=== PATIENT | male | born 1945 | race Caucasian/White ===

== ENCOUNTER 2021-03-07 14:10 | Emergency (ER) | payer MEDICARE ==
[~2021-03-07] VITALS: Ht 167.6 cm; Wt 58.2 kg
--- NOTE | 2021-03-07 14:22 | NUR ---
TRIAGE: PATIENT ARRIVES WITH RLQ PAIN THAT BEGAN 9 DAYS AGO OFF AND ON. NO N/V
--- NOTE | 2021-03-07 14:34 | NUR ---
ASSUMED CARE OF PATIENT. PATIENT REPORTS RIGHT LOWER ABD PAIN X9 DAYS. VS STABLE. NO ACUTE DISTRESS NOTED. CALL LIGHT IN PLACE. WILL CONTNIUE TO MONITOR.
[2021-03-07 15:24] LABS: BASOPHILS % (AUTO) 1 % (0-1); EOSINOPHILS % (AUTO) 2 % (1-7); LYMPHOCYTES % (AUTO) 21 % (22-44); MEAN CORPUSCULAR HEMOGLOBIN 29.1 pg (27.5-34.5); MEAN CORPUSCULAR HGB CONC 33.5 g/dL (33.2-36.2); MEAN PLATELET VOLUME 7.7 fL (7.4-10.4); MONOCYTES % (AUTO) 10 % (2-9); NEUTROPHILS % (AUTO) 65 % (42-75); PLATELET COUNT 222 x10^3/uL (130-400); RED BLOOD COUNT 4.66 x10^6/uL (4.38-5.82)
[2021-03-07 15:26] LABS: MD NO
[2021-03-07 15:35] LABS: ALANINE AMINOTRANSFERASE 26 U/L (12-78); CALCIUM 9.1 mg/dL (8.5-10.1); CHLORIDE 110 mmol/L (98-107)
--- NOTE | 2021-03-07 15:35 | NUR ---
LABS DRAWN, UA SENT. VS STABLE. NO ACUTE DISTRESS NOTED. AT BEDSIDE. CALL LIGHT IN PLACE. WILL CONTINUE TO MONITOR.
[2021-03-07] MEDS ORDERED: OMNIPAQUE 350 MG/ML, 100ML BOTTLE ONE (15:37)
[2021-03-07 15:39] LABS: ALKALINE PHOSPHATASE 54 U/L (45-117); ANION GAP 5 mmol/L (5-15); BILIRUBIN,TOTAL 0.4 mg/dL (0.2-1.0); TOTAL PROTEIN 7.1 g/dL (6.4-8.2)
[2021-03-07 15:43] LABS: MICROSCOPIC NOT IND
--- NOTE | 2021-03-07 16:20 | NUR ---
PT AT CT
--- NOTE | 2021-03-07 16:46 | NUR ---
PT RESTING IN ROOM. NO ACUTE DISTRESS NOTED. CALL LIGHT IN PLACE. WILL CONTINUE TO MONITOR.
[2021-03-07 17:19] VITALS: BP 131/73
--- NOTE | 2021-03-07 17:19 | NUR ---
DR CASTREJON HAS UPDATED PATIENT. VS STABLE NO ACUTE DISTRESS NOTED. PT DISCHARGED PER DR CASTREJON.
== END 2021-03-07 17:21 | disposition home or self-care (01) ==
LOC: ED 17:15
DX: R10.31 Right lower quadrant pain (principal)
CPT/HCPCS: 36415; 74177; 80053; 81003; 85025; 99285; Q9967